=== PATIENT | male | born 1935 | race Caucasian/White ===

== ENCOUNTER 2017-04-19 02:33 | Emergency (ER) | payer OTHER, MEDICARE ==
[2017-04-19 02:40] VITALS: RESP 16; TEMP 98.2
--- NOTE | 2017-04-19 02:48 | EDPHY ---
H & P Stated Complaint: says took abx tablet at approx 0100 and says it feels stuck in throat Time Seen by Provider: 04/19/17 02:40 HPI/ROS: HPI CHIEF COMPLAINT: "I feel like I have a pill stuck in my throat" HISTORY OF PRESENT ILLNESS: Patient very pleasant 81-year-old male, history of hypertension, recently diagnosed with a dental infection is taking clindamycin 4 times a day. He states he said his alarm at 1:00 a.m. To take his dose at 1: 00 a.m. He swallowed the pill and felt like it got stuck in the back of his throat or proximal esophagus region. He is able to handle his secretions he is not vomiting he is not retching. He denies any significant pain. He states he feels a sensation that it stuck back there. He is able swallow and drink fluids appropriately. Denies chest pain or shortness of breath. Past Medical History: Hypertension Past Surgical History: Denies recent surgery Social History: He denies drugs alcohol tobacco. Family History: None ROS REVIEW OF SYSTEMS: A comprehensive 10 point review of systems is otherwise negative aside from elements mentioned in the history of present illness. Exam Constitutional appears well nontoxic no acute distress, triage nursing summary reviewed, vital signs reviewed, awake/alert. Eyes normal conjunctivae and sclera, EOMI, PERRLA. HENT posterior pharynx unremarkable no evidence retained foreign body, normal inspection, atraumatic, moist mucus membranes, no epistaxis, neck supple/ no meningismus, no raccoon eyes. Respiratory clear to auscultation bilaterally, normal breath sounds, no respiratory distress, no wheezing. Cardiovascular rate normal, regular rhythm, no murmur, no edema, distal pulses normal. Gastrointestinal soft, non-tender, no rebound, no guarding, normal bowel sounds, no distension, no pulsatile mass. Genitourinary no CVA tenderness. Musculoskeletal no midline vertebral tenderness, full range of motion, no calf swelling, no tenderness of extremities, no meningismus, good pulses, neurovascularly intact. Skin pink, warm, & dry, no rash, skin atraumatic. Neurologic awake, alert and oriented x 3, AAOx3, moves all 4 extremities equally, motor intact, sensory intact, CN II-XII intact, normal cerebellar, normal vision, normal speech. Psychiatric normal mood/affect. Heme/Lymph/Immune no lymphadenopathy. Differential Diagnosis: Includes but is not limited to in a particular order pill esophagitis, retained pill in the posterior pharynx, scratch to the posterior pharynx Medical Decision Making: Patient this time is drinking. Having no difficulty. There is no stridor. Posterior pharynx unremarkable on exam. Will give a GI cocktail to see if this soothe his throat and re-evaluate. Re-evaluation: 0419: Patient feeling much better. He is able to drink appropriately without any vomiting or severe pain. He did receive a GI cocktail this improved his discomfort in his throat. Able to handle secretions. No stridor. No trouble breathing. This was a gel capsule of clindamycin. I will allow her to go home. He understands return precautions he understands if develops worsening pain, trouble swallowing, vomiting he needs return emergency room. Source: Patient - Medical/Surgical History Hx Asthma: No Hx Chronic Respiratory Disease: No Hx Diabetes: No Hx Cardiac Disease: Yes Hx Renal Disease: No Hx Cirrhosis: No Hx Alcoholism: No Hx HIV/AIDS: No Hx Splenectomy or Spleen Trauma: No Other PMH: hypertension, afib, hyperlipidemia, hernia repair - Social History Smoking Status: Former smoker Constitutional: Initial Vital Signs Temperature (C) 36.8 C 04/19/17 02:36 Heart Rate 88 04/19/17 02:36 Respiratory Rate 16 04/19/17 02:36 Blood Pressure 131/97 H 04/19/17 02:36 O2 Sat (%) 95 04/19/17 02:36 O2 Delivery Mode Room Air Allergies/Adverse Reactions: ciprofloxacin Allergy (Verified 04/19/17 02:41) fosinopril Allergy (Verified 04/19/17 02:41) Sulfa (Sulfonamide Antibiotics) Allergy (Verified 04/19/17 02:41) tramadol Allergy (Verified 04/19/17 02:41) Home Medications: Medication Instructions Recorded Atenolol 04/19/17 Clindamycin 04/19/17 Norvasc 10 mg (*) 04/19/17 Pradaxa 04/19/17 Zocor 04/19/17 Medical Decision Making - Data Points Medications Given: Discontinued Medications Al Hydroxide/Mg Hydroxide (Maalox Susp) 30 ml PO ONCE ONE Stop: 04/19/17 03:00 Last Admin: 04/19/17 03:15 Dose: 30 ml Hyoscyamine Sulfate (Levsin, Hyomax-Sl) 0.25 mg PO ONCE ONE Stop: 04/19/17 03:00 Last Admin: 04/19/17 03:15 Dose: 0.25 mg Lidocaine (Lidocaine 2% Viscous) 15 ml PO ONCE ONE Stop: 04/19/17 03:00 Last Admin: 04/19/17 03:15 Dose: 15 ml Departure - Departure Disposition: Home, Routine, Self-Care Clinical Impression: Foreign body sensation in throat Condition: Good Instructions: Pharyngitis (ED) Additional Instructions: 1. Return emergency room if you have worsening symptoms questions or concerns. Referrals: NONE *PRIMARY CARE P,. [Primary Care Provider] - As per Instructions
[2017-04-19] MEDS ORDERED: HYOSCYAMINE SULFATE 0.125 MG TAB PO ONE (02:59)
[2017-04-19] MEDS ORDERED: MAG HYDROX/AL HYDROX/SIMETH 30 ML UDCUP PO ONE (02:59)
[2017-04-19] MEDS ORDERED: LIDOCAINE 2% VISCOUS 15 ML UDCUP PO ONE (02:59)
[2017-04-19 04:23] VITALS: BP 128/88; O2SAT 94
[2017-04-19 04:24] VITALS: PULSE 88
== END 2017-04-19 04:24 | disposition home or self-care (01) ==
DX: R09.89 Other specified symptoms and signs involving the circulatory and respiratory systems (principal); I10 Essential (primary) hypertension; Z87.891 Personal history of nicotine dependence